=== PATIENT | female | born 1950 | race Two or more races ===

== ENCOUNTER 2017-06-23 17:47 | Emergency (ER) | payer MEDICARE ==
[~2017-06-23] VITALS: Ht 165.1 cm; Wt 133.8 kg
[2017-06-23 17:59] VITALS: BP 202/98
[2017-06-23] MEDS ORDERED: cloNIDine HCL 0.1 MG TAB ONE (18:02)
[2017-06-23] MEDS ORDERED: cloNIDine HCL 0.1 MG TAB PO ONE (18:15)
[2017-06-23 19:00] LABS: Basophils # (auto) 0.1 uL; Basophils % (auto) 0.9 % (0.0-2.0); Eosinophils # (auto) 0.1 uL; Eosinophils % (auto) 1.2 % (0.0-7.0); Hematocrit 45.1 % (36.0-46.0); Hemoglobin 14.7 g/dL (12.2-16.2); Lymphocytes # (auto) 1.9 uL; Lymphocytes % (auto) 20.3 % (10.0-50.0); Mean Corpuscular Hemoglobin 29.5 pg (28.0-32.0); Mean Corpuscular Hgb Conc. 32.6 g/dL (32.0-36.0); Mean Corpuscular Volume 90.4 fL (80.0-100.0); Monocytes # (auto) 0.5 uL; Monocytes % (auto) 4.9 % (0.0-12.0); Neutrophils # (auto) 6.8 uL; Neutrophils % (auto) 72.7 % (37.0-80.0); Nucleated Red Blood Cells % 0.1 %; Platelet Count (auto) 255 10^3/uL (140-450); Red Blood Cells 4.99 10^6/uL (4.0-5.20); White Blood Cell 9.3 10^3/uL (4.4-10.8)
[2017-06-23 19:14] LABS: Urine Bacteria NONE SEEN /hpf (None Seen); Urine Blood Negative /uL (Negative); Urine Mucus FEW (None Seen); Urine Specific Gravity 1.015 (1.001-1.035); Urine WBC 1 /hpf (0 - 5)
[2017-06-23 19:17] LABS: Alanine Aminotransferase 24 U/L (13-56); Albumin 3.7 g/dL (3.4-5.0); Anion Gap 7 (5-15); BUN/Creatinine Ratio 24.4; Blood Urea Nitrogen 22 mg/dL (7-18); Carbon Dioxide 26 mmol/L (21-32); Chloride 106 mmol/L (98-107); GFR African American 81 mL/min; GFR Non-African American 67 mL/min; Glucose 114 mg/dL (74-106); Potassium 4.1 mmol/L (3.5-5.1); Sodium 139 mmol/L (136-145)
[2017-06-23 19:32] LABS: Alkaline Phosphatase 98 U/L (45-117); Aspartate Aminotransferase 16 U/L (15-37); Bilirubin, Total 0.4 mg/dL (0.2-1.0); Total Protein 8.2 g/dL (6.4-8.2)
== END 2017-06-23 23:33 | disposition left against medical advice (07) ==
LOC: ER 17:52
DX: R42 Dizziness and giddiness (principal); Z53.21 Procedure and treatment not carried out due to patient leaving prior to being seen by health care provider
CPT/HCPCS: 36415; 70450; 71046; 80053; 81001; 83735; 84484; 85025; 93005